=== PATIENT | male | born 1965 | race Caucasian/White ===

== ENCOUNTER 2024-12-14 07:17 | Day surgery (SDC) | payer BC ==
[2024-12-14] VITALS (9 sets, daily range): BP systolic 114–152; BP diastolic 71–97
[~2024-12-14 07:17] MED LIST: ASPI325 PO; ASPI81CH PO; ATOR80 PO; CELE200 PO; HUMALOG JU100 UNIT/2; METO50ER PO; REPATHA SU140 MG/1 M SQ
[2024-12-14] MEDS ORDERED: NS 2,000 ML IV ONE (07:33)
[2024-12-14] MEDS ORDERED: Verapamil HCL 2.5 MG/ML 2ML Injection ONE (07:33)
[2024-12-14] MEDS ORDERED: NS 1,000 ML IV ONE (08:19)
[2024-12-14] MEDS ORDERED: Midazolam HCl 1MG / ML 2ML Vial ONE (08:19)
[2024-12-14] MEDS ORDERED: FentaNYL Citrate 50 MCG/ML 2 ML Injection ONE (08:19)
[2024-12-14] MEDS ORDERED: Tirofiban HCL Monohydrate 3.75 MG/15 ML Vial ONE (08:44)
[2024-12-14] MEDS ORDERED: Heparin Sodium 1000 Units/ML 10ML MDV ONE (08:51)
[2024-12-14] MEDS ORDERED: Clopidogrel Bisulfate 300 MG TABLET ONE (09:16)
--- NOTE | 2024-12-14 09:44 | NUR ---
PT RETURNED TO RECOVERY ROOM IN [facility]. R RADIAL TR BAND SITE SOFT NON-TENDER WITH NO HEMATOMA, NO PULSATILE BLEEDING AND RIGHT WRIST BOARD IN PLACE. PT DRINKING PEPSI AND EATING CHEESE. PT DENIES CHEST PAIN. CALL LIGHT IN REACH.
[2024-12-14] MEDS ORDERED: CLOP75 PO (09:56)
--- NOTE | 2024-12-14 10:02 | NUR ---
NO CHANGES TO R RAD TR BAND SITE.
--- NOTE | 2024-12-14 10:17 | NUR ---
NO CHANGES TO R RAD TR BAND SITE.
--- NOTE | 2024-12-14 11:08 | NUR ---
11 CC OF AIR REMOVED OVER 20 MIN OUT OF NOW DEFLATED R RAD TR BAND. R RAD SITE STILL SOFT NON-TENDER WITH NO HEMATOMA, NO PULSATILE BLEEDING AND WRIST BOARD IN PLACE. DISCHARGE INSTRUCTIONS REVIEWED ALL QUESTIONS ANSWERED.
--- NOTE | 2024-12-14 11:34 | NUR ---
NO CHANGES TO DEFLAGED R TR BAND SITE.
--- NOTE | 2024-12-14 12:05 | NUR ---
PT DRESSED SELF WITHOUT ISSUE, SITE UNCHANGED. TR BAND REMOVED, CLOTH DOT AND WRIST IMMOBILIZER PLACED; IV REMOVED-CANNULA INTACT.
--- NOTE | 2024-12-14 12:09 | NUR ---
REVIEWED DISCHARGE INSTRUCTIONS, MED LIST AND AFTER CARE INSTRUCTIONS WITH PT AND SO; VERBALIZED GOOD UNDERSTANDING. PT LEFT FACILITY VIA W/C, CONDITION STABLE.
== END 2024-12-14 12:15 | disposition home or self-care (01) ==
LOC: MHTC 07:17
DX: I25.10 Atherosclerotic heart disease of native coronary artery without angina pectoris (principal); I25.84 Coronary atherosclerosis due to calcified coronary lesion; I10 Essential (primary) hypertension; E78.5 Hyperlipidemia, unspecified; E11.9 Type 2 diabetes mellitus without complications; E66.9 Obesity, unspecified; Z68.32 Body mass index [BMI] 32.0-32.9, adult; Z79.82 Long term (current) use of aspirin; Z79.4 Long term (current) use of insulin; Z79.1 Long term (current) use of non-steroidal anti-inflammatories (NSAID); Z79.899 Other long term (current) drug therapy
CPT/HCPCS: 76937; 85347; 92920; 93454; 99152; 99153; A9270; C1725; C1769; C1887; C1894; C9600; J1644; J2250; J3010; J3246; J7030; Q9967